=== PATIENT | male | born 1965 | race African-American/Black ===

== ENCOUNTER 2017-02-20 14:10 | Emergency (ER) | payer BC ==
[~2017-02-20] VITALS: Ht 175.3 cm; Wt 72.6 kg
[2017-02-20 14:40] VITALS: BP 141/80
--- NOTE | 2017-02-20 14:57 | PHYS DOC ---
Past Medical History Past Medical History: No Pertinent History Past Surgical History: No Surgical History Additional Information: 11/08 ppd Alcohol Use: None Drug Use: None Adult General Chief Complaint Chief Complaint: FLU SYMPTOM [facility] HPI Patient is a 51 year old [male who presents emergency Department today with a complaint of "flulike symptoms" for the past 3 days. Patient reports nonproductive cough, nasal congestion, body aches, subjective fevers and chills. He denies any known contact with others with similar symptoms. Patient is a smoker. He denies known history of heart or lung disease. He denies antibiotic use, foreign travel or hospitalization within the past 90 days. Review of Systems Review of Systems Constitutional: Denies fever or chills [] Eyes: Denies change in visual acuity, redness, or eye pain [] HENT: Denies nasal congestion or sore throat [] Respiratory: Denies cough or shortness of breath [] Cardiovascular: No additional information not addressed in HPI [] GI: Denies abdominal pain, nausea, vomiting, bloody stools or diarrhea [] : Denies dysuria or hematuria [] Musculoskeletal: Denies back pain or joint pain [] Integument: Denies rash or skin lesions [] Neurologic: Denies headache, focal weakness or sensory changes [] Endocrine: Denies polyuria or polydipsia [] Allergies Allergies Allergies Coded Allergies Type Severity Reaction Last Updated Verified No Known Drug Allergies 02/20/17 No Physical Exam Physical Exam Constitutional: Well developed, well nourished, no acute distress, non-toxic appearance. Patient is afebrile. HENT: Normocephalic, atraumatic, bilateral external ears normal, oropharynx moist, no oral exudates, boggy nasal mucosa with clear rhinorrhea. Eyes: PERRLA, EOMI, mild subconjunctival injection with clear tear film. Neck: Normal range of motion, no tenderness, supple, no stridor. There is no meningismus or cervical lymphadenopathy. Cardiovascular:Heart rate regular rhythm, no murmur Lungs & Thorax: There is no respiratory distress or respiratory fatigue. There is no sensory muscle use or posturing. Lungs are clear to auscultation bilaterally. Abdomen: Bowel sounds normal, soft, no tenderness, no masses, no pulsatile masses. [] Skin: Warm, dry, no erythema, no rash. Back: No tenderness, no CVA tenderness. [] Extremities: No tenderness, no cyanosis, no clubbing, ROM intact, no edema. [] Neurologic: Alert and oriented X 3, normal motor function, normal sensory function, no focal deficits noted. Psychologic: Affect normal, judgement normal, mood normal. [] Current Patient Data Vital Signs Vital Signs Date Time Temp Pulse Resp B/P Pulse Ox O2 Delivery O2 Flow Rate FiO2 02/20/17 14:40 98.4 60 18 141/80 99 Room Air 98.4 Lab Values Laboratory Tests Test 02/20/17 15:17 Influenza Type A Antigen Negative (NEGATIVE) Influenza Type B Antigen Negative (NEGATIVE) EKG EKG [] Radiology/Procedures Radiology/Procedures [[facility] [address] [place] [address] IMAGING REPORT Signed PATIENT: SALOME WATERS ACCOUNT: [id number] : 1965 LOCATION: ER AGE: 51 SEX: M EXAM STATUS: PRE ER ORD. PHYSICIAN: BERNABE DE LEÓN REASON: cough, weakness, subjective fever PROCEDURE: CHEST PA & LATERAL CHEST PA LATERAL Clinical Indication: cough, weakness, subjective fever Comparison: None. Technique: Frontal and lateral views of the chest are obtained. Findings: No focal consolidation, pleural effusion or pneumothorax is seen. Cardiomediastinal silhouette is within normal limits of size. Visualized osseous structures and overlying soft tissues demonstrate no acute finding. IMPRESSION: No focal consolidation or acute radiographic finding. DICTATED and SIGNED BY: STACEY CAMACHO MD DATE: 02/20/17 1458 CC: BERNABE DE LEÓN ~ Course & Med Decision Making Course & Med Decision Making Pertinent Labs and Imaging studies reviewed. (See chart for details) [] Dragon Disclaimer Dragon Disclaimer This electronic medical record was generated, in whole or in part, using a voice recognition dictation system. Departure Departure Impression: Primary Impression: Cough Disposition: 01 HOME, SELF-CARE Condition: GOOD Patient Instructions: Cough, Adult, [id number] Additional Instructions: 1. Influenza test today is negative. Chest x-ray shows no evidence of pneumonia. 2. Your cough and congestion is most likely due to allergies. 3. Take the medication as prescribed. 4. Review the discharge instructions provided for self-care and reasons to return to the emergency department. 5. Use the pamphlet provided for assistance in finding a primary care doctor to address your medical concerns. You can call tomorrow to schedule an appointment. Scripts D-Methorphan Hb/Prometh Hcl (Promethazine-Dm Syrup)118 Ml Syrup5 Ml PO PRN Q4HRS COUGH #120 ML Prov:BERNABE DE LEÓN 02/20/17 Fluticasone Propionate (Flonase Allergy Relief)9.9 Ml Turner.susp2 Sprays NS DAILY #1 BOTTLE Ref 2 Prov:BERNABE DE LEÓN 02/20/17 Cetirizine Hcl (Zyrtec)10 Mg Tablet1 Tab PO DAILY #30 TAB Ref 2 Prov:BERNABE DE LEÓN 02/20/17 BERNABE DE LEÓN Feb 20, 2017 14:57
--- NOTE | 2017-02-20 15:02 | RAD ---
CHEST PA LATERAL Clinical Indication: cough, weakness, subjective fever Comparison: None. Technique: Frontal and lateral views of the chest are obtained. Findings: No focal consolidation, pleural effusion or pneumothorax is seen. Cardiomediastinal silhouette is within normal limits of size. Visualized osseous structures and overlying soft tissues demonstrate no acute finding. IMPRESSION: No focal consolidation or acute radiographic finding.
[2017-02-20 15:43] LABS: OBC FLU VALID
[2017-02-20] MEDS ORDERED: FLUT9.9S NS (15:48)
[2017-02-20] MEDS ORDERED: D-ME118S2 PO (15:48)
[2017-02-20] MEDS ORDERED: CETI10TA22 PO (15:48)
== END 2017-02-20 15:54 | disposition home or self-care (01) ==
LOC: ER 14:10
DX: R05 Cough (principal); F17.200 Nicotine dependence, unspecified, uncomplicated
CPT/HCPCS: 71020; 87804; 99285

== ENCOUNTER → 2018-03-30 | Outpatient (CLI) | payer SELFPAY | END | disposition home or self-care (01) | LOC: LAB 18:18 | DX: Z02.83 Encounter for blood-alcohol and blood-drug test (principal); Z87.891 Personal history of nicotine dependence | CPT/HCPCS: 36415 ==